=== PATIENT | male | born 1965 | race Caucasian/White ===

== ENCOUNTER 2016-12-31 22:03 | Emergency (ER) | payer OTHER ==
[~2016-12-31] VITALS: Ht 172.7 cm; Wt 84.5 kg
[2016-12-31 22:10] VITALS: Ht 172.7 cm; Wt 84.5 kg
[2017-01-01] MEDS ORDERED: ACETAMINOPHEN 500 MG TAB PO STA (00:28)
[2017-01-01] MEDS ORDERED: AZIT250T94 PO (01:37)
[2017-01-01] MEDS ORDERED: ALBU8.5H3 INH (01:38)
[2017-01-01] MEDS ORDERED: D-ME473S18 PO (01:38)
--- NOTE | 2017-01-01 01:44 | ERD ---
ER Documentation Chief Complaint Date/Time DATE: 01/01/17 TIME: 01:41 Chief Complaint COUGH, FEVER, BODY ACHES X2 WEEKS HPI This is a 51-year-old male presents to the ER with a cough for the last month. Patient states that he has also had a fever over the last few days. Cough is constant and productive. Patient states that he tried Mucinex however it does not work. He also admits to body pain. He denies any chest pain or shortness of breath. There are no sick contacts at home. ROS 12 point review of systems was done, all negative except per HPI. Medications Home Meds Active Scripts Dextromethorphan Hb-Promethazine Hcl (Promethazine DM Syrup) 473 Ml Syrup, 10 ML PO Q6H Y for COUGH, #4 OZ Prov:PANCHITO WATSON 01/01/17 Albuterol Sulfate* (Proair HFA*) 8.5 Gm Hfa.aer.ad, 2 PUFF INH Q4, #1 INHALER Prov:PANCHITO WATSON 01/01/17 Azithromycin* (Zithromax*) 250 Mg Tablet, 250 MG PO .ZPACK DIRECTED, #6 TAB TAKE 500 MG (2 TABS) THE FIRST DAY THEN 250 MG (1 TAB) DAYS 2-5 Prov:PANCHITO WATSON 01/01/17 Allergies Allergies: Coded Allergies: No Known Allergy (Unverified , 01/01/17) PMhx/Soc Medical and Surgical Hx: pt denies Medical Hx Hx Miscellaneous Medical Probl: Yes (diabetes - diet controlled) Hx Alcohol Use: Yes Hx Substance Use: No Hx Tobacco Use: No Smoking Status: Never smoker Physical Exam Vitals Vital Signs Date Time Temp Pulse Resp B/P Pulse Ox O2 Delivery O2 Flow Rate FiO2 12/31/16 22:10 100.3 98 20 138/83 99 Physical Exam GENERAL: The patient is well-developed, well-nourished, in no acute distress. NECK: Cervical spine is non tender with no step off. Supple, no nuchal rigidity HEENT: Atraumatic. Pupils equal, round and reactive to light. Extraocular muscles are grossly intact. Conjunctivae pink, no discharge. Bilateral tympanic membranes are clear with no evidence of erythema, effusion or dulling of the light reflex. Tonsilar erythema with no exudates or uvular deviation. Clear rhinorrhea. RESPIRATORY: Clear to auscultation bilaterally. There are no rales, wheezes or rhonchi. HEART: Regular rate and rhythm. No murmurs, clicks, rubs or gallops. EXTREMITIES: No clubbing or cyanosis. Full range of motion. Grossly neurovascularly intact. NEUROLOGIC: Alert and oriented. Cranial nerves II through XII are intact. SKIN: There is no rash. The skin is warm and dry. Results 24 hrs Current Medications Medications (Trade) Dose Ordered Sig/Kirill Route PRN Reason Start Time Stop Time Status Last Admin Dose Admin Acetaminophen (Tylenol Tab) 1,000 mg ONCE STAT PO 01/01/17 00:28 01/01/17 00:29 DC 01/01/17 00:35 Procedures/MDM Differential diagnosis includes but is not limited to; Viral URI, allergic rhinitis, bronchitis, pertussis,pneumonia will be treated for possible bacterial bronchitis secondary to length and severity of symptoms.. Clinical suspicion for pneumonia is low as patient appears well, is not hypoxic or in any respiratory distress. Additionally, patients physical examination is benign. Plan was discussed with patient they understand and agree. Patient needs to follow up with PCP in 1-2 days or return to ER sooner if symptoms worsen. Departure Diagnosis: Primary Impression: Bronchitis Condition: Stable Patient Instructions: What Is Bronchitis? Additional Instructions: Llame al doctor KALYANI y chip kimberly EDGAR PARA DENTRO DE 1-2 DUPREE.Dgale a la secretaria que nosotros le instruimos hacer esta edgar.Avise o llame si quiroz condicin se empeora antes de la edgar. Regresa aqui si peor o no mejor. PANCHITO WATSON Jan 01, 2017 01:44
[2017-01-01 01:56] VITALS: TEMP 98.9
== END 2017-01-01 01:56 | disposition home or self-care (01) ==
LOC: FTE 22:03
DX: J20.9 Acute bronchitis, unspecified (principal); E11.9 Type 2 diabetes mellitus without complications
CPT/HCPCS: Z7502; Z7610; 99284